=== PATIENT | female | born 1990 | race Caucasian/White ===

== ENCOUNTER 2018-02-13 23:36 | Emergency (ER) | payer OTHER ==
[~2018-02-13] VITALS: Ht 160 cm; Wt 49.9 kg
[~2018-02-13 23:36] MED LIST: AUGMENTIN 500-1 EACH PO; CORTEF 20 MG TA20 M1 PO; EXCEDRIN CAPLE1 EACH PO; HYDROCODONE-APA1 TA1 PO; HYDROCORTISONE10 MG PO; [UNRECOGNIZED DRUG - OTHER]
[2018-02-14 00:10] LABS: ABSOLUTE BASOPHILS 0.1 thou/uL (0.0-0.2); ABSOLUTE EOSINOPHILS 0.4 thou/uL (0.0-0.7); ABSOLUTE MONOCYTES 0.4 thou/uL (0.0-1.2); ABSOLUTE NEUTROPHILS 2.3 thou/uL (1.6-8.1); BASOPHILS 0.8 %; EOSINOPHILS 6.3 %; HEMATOCRIT 41.9 % (37.0-47.0); HEMOGLOBIN 14.1 gm/dL (12.0-15.0); MCHC 33.5 g/dL (28.0-37.0); MCV 89.6 fL (80.0-100.0); MONOCYTES 7.2 %; MPV 8.2 fl. (7.2-11.1); NUCLEATED RBCS 0 /100WBC; PLATELET COUNT* 253 thou/uL (150-400); POLYS 36.7 %; RBC 4.68 mil/uL (4.20-5.00); RDW-CV 13.4 % (10.5-14.5); WBC 6.2 thou/uL (4.0-11.0)
[2018-02-14 00:15] LABS: ANION GAP 7 mmol/L (7-16); BUN 10 mg/dL (7-18); CALCIUM 8.5 mg/dL (8.5-10.1); CHLORIDE 97 mmol/L (98-107); CO2 27 mmol/L (21-32); CREATININE 0.9 mg/dL (0.6-1.3); GLUCOSE 90 mg/dL (70-99); POTASSIUM 3.8 mmol/L (3.5-5.1); SODIUM 131 mmol/L (136-145)
[2018-02-14 00:26] LABS: ALKALINE PHOSPHATASE 60 U/L (46-116); LIPASE 86 U/L (73-393); MAGNESIUM 1.9 mg/dL (1.8-2.4); NT-PRO BRAIN NAT PEPTIDE 15 pg/mL (<300); SGOT 18 U/L (15-37); SGPT 22 U/L (30-65); TOTAL BILIRUBIN 0.3 mg/dL (<0.1-1.0); TOTAL PROTEIN 7.3 g/dL (6.4-8.2); TROPONIN-I LEVEL <0.06 ng/mL (<0.06)
[2018-02-14] MEDS ORDERED: NORCO 5-325 TA1 EACH PO (02:36)
[2018-02-14 02:44] VITALS: BP 89/60
--- NOTE | 2018-02-14 14:37 | EKG ---
[place] [address] ELECTROCARDIOGRAM REPORT Name: JAVON JAMIL Room: [facility]#: [id number] Admission: 02/13/18 Attend Phys: Discharge: 02/14/18 Date of : [birth year] Report #: [id number] THIS REPORT FOR: //name// [facility] ED Test Date: 2018-02-13 Test Time: 23:40:46 Pat Name: JAVON JAMIL Department: Room: Gender: F [place] Guide: GRACE : 1990 Requested By: Angus Gonzalez Order Number: [id number] MD: Sree Cunningham Measurements Intervals [place] Rate: 74 P: 55 MT: 125 QRS: 84 QRSD: 99 T: 27 QT: 378 QTc: 420 Interpretive Statements Sinus rhythm RSR' in V1 or V2, right VCD or RVH Baseline wander in lead(s) III,aVF Compared to ECG 05/23/2017 09:05:34 Right ventricular hypertrophy now present Sinus tachycardia no longer present T-wave abnormality no longer present Electronically Signed On 02-14-2018 14:37:31 CDT by Sree Cunningham [email or web address] <ELECTRONICALLY SIGNED> By: Raghavendra Cunningham MD, [facility] 02/14/18 1437 2340 2340 Raghavendra Cunningham MD, [facility] /EPI
--- NOTE | 2018-02-14 14:37 | EKG ---
[place] [address] ELECTROCARDIOGRAM REPORT Name: JAVON JAMIL Room: [facility]#: [id number] Admission: 02/13/18 Attend Phys: Discharge: 02/14/18 Date of : [birth year] Report #: [id number] THIS REPORT FOR: //name// [facility] ED Test Date: 2018-02-14 Test Time: 02:21:46 Pat Name: JAVON JAMIL Department: Room: Gender: F Refrigeration Person: GRACE : 1990 Requested By: Angus Gonzalez Order Number: [id number] MD: Sree Cunningham Measurements Intervals [place] Rate: 55 P: 8 NH: 124 QRS: 78 QRSD: 102 T: 34 QT: 437 QTc: 418 Interpretive Statements Sinus rhythm Compared to ECG 05/23/2017 09:05:34 Sinus tachycardia no longer present T-wave abnormality no longer present Electronically Signed On 02-14-2018 14:37:42 CDT by Sree Cunningham [email or web address] <ELECTRONICALLY SIGNED> By: Raghavendra Cunningham MD, [facility] 02/14/18 1437 0 0 Raghavendra Cunningham MD, [facility] /EPI
== END 2018-02-14 02:44 | disposition home or self-care (01) ==
LOC: M.ERS 23:36
PROVIDERS: Emergency Medicine Emergency Medical Services
DX: R09.1 Pleurisy (principal); F17.210 Nicotine dependence, cigarettes, uncomplicated; Z90.49 Acquired absence of other specified parts of digestive tract

== ENCOUNTER 2018-04-06 11:30 | Emergency (ER) | payer OTHER ==
[~2018-04-06] VITALS: Ht 160 cm; Wt 49.9 kg
[~2018-04-06 11:30] MED LIST changes: +NORCO 5-325 TA1 EACH PO
[2018-04-06 12:05] LABS: ABSOLUTE EOSINOPHILS 0.4 thou/uL (0.0-0.7); ABSOLUTE LYMPHOCYTES 2.1 thou/uL (0.8-5.3); ABSOLUTE MONOCYTES 0.5 thou/uL (0.0-1.2); BASOPHILS 0.7 %; EOSINOPHILS 5.2 %; HEMATOCRIT 40.3 % (37.0-47.0); HEMOGLOBIN 13.4 gm/dL (12.0-15.0); LYMPHOCYTES 29.7 %; MCH 29.4 pg (26.0-34.0); MCHC 33.2 g/dL (28.0-37.0); MCV 88.6 fL (80.0-100.0); MONOCYTES 6.7 %; MPV 7.5 fl. (7.2-11.1); NUCLEATED RBCS 0 /100WBC; PLATELET COUNT* 287 thou/uL (150-400); POLYS 57.7 %; RBC 4.55 mil/uL (4.20-5.00); RDW-CV 13.9 % (10.5-14.5)
[2018-04-06 12:14] LABS: CALCIUM 8.3 mg/dL (8.5-10.1); CREATININE 0.6 mg/dL (0.6-1.3); POTASSIUM 3.5 mmol/L (3.5-5.1)
[2018-04-06 12:18] LABS: ALBUMIN 3.7 g/dL (3.4-5.0); TOTAL BILIRUBIN 0.3 mg/dL (<0.1-1.0); TOTAL PROTEIN 7.6 g/dL (6.4-8.2)
[2018-04-06] MEDS ORDERED: ONDANSETRON HCL4 M2 PO (13:06)
[2018-04-06] MEDS ORDERED: PROMETHAZINE V473 ML PO (13:06)
[2018-04-06] MEDS ORDERED: KEFLEX500 M1 PO (13:06)
[2018-04-06 13:17] VITALS: BP 92/51
== END 2018-04-06 13:19 | disposition home or self-care (01) ==
LOC: M.ERS 11:30
PROVIDERS: Physician Assistant
DX: J06.9 Acute upper respiratory infection, unspecified (principal); F17.210 Nicotine dependence, cigarettes, uncomplicated; Z90.49 Acquired absence of other specified parts of digestive tract